=== PATIENT | female | born 1930 | race Caucasian/White ===

== ENCOUNTER 2017-06-03 18:26 | Emergency (ER) | payer OTHER ==
[2017-06-03 20:00] LABS: BASOPHIL % 0.9 % (0-2); PLATELET COUNT 231 x10^3mcL (130-400); RED CELL DISTRIBUTION WIDTH 13.8 % (11.5-14.5)
[2017-06-03 20:23] LABS: ALBUMIN 3.7 g/dL (3.4-5.0); ALKALINE PHOSPHATASE 117 U/L (46-116); ALT/SGPT 31 U/L (14-59); AST/SGOT 37 U/L (15-37); BILIRUBIN TOTAL 0.62 mg/dL (0.20-1.00); CALCIUM 9.4 mg/dL (8.5-10.1); CARBON DIOXIDE 30.1 mmol/L (21-32); CHLORIDE SERUM 101 mmol/L (98-107); CREATININE SERUM 1.1 mg/dL (0.6-1.0); POTASSIUM SERUM 4.1 mmol/L (3.5-5.1); SODIUM SERUM 138 mmol/L (136-145); TOTAL PROTEIN, SERUM 8.1 g/dL (6.4-8.2)
[2017-06-03 20:28] LABS: GLUCOSE SERUM 101 mg/dL (74-106)
[2017-06-03 21:50] LABS: microscopic required? YES; urine erythrocyte NEGATIVE (NEGATIVE)
[2017-06-03 22:45] VITALS: BP 129/82
== END 2017-06-03 22:45 | disposition home or self-care (01) ==
LOC: ED 18:26
PROVIDERS: Emergency Medicine
DX: R53.1 Weakness (principal); R06.00 Dyspnea, unspecified; I11.0 Hypertensive heart disease with heart failure; I50.9 Heart failure, unspecified; Z88.1 Allergy status to other antibiotic agents; Z88.2 Allergy status to sulfonamides; Z88.5 Allergy status to narcotic agent
CPT/HCPCS: 36415; 83880